=== PATIENT | female | born 1955 | race Caucasian/White ===

== ENCOUNTER → 2024-04-19 11:08 | Outpatient (CLI) | payer MEDICARE, SELFPAY ==
--- NOTE | 2024-04-19 11:12 | DI.MRI.S_ITS ---
PROCEDURE: MR KNEE RT WO CON INDICATIONS: TEAR OF MEDIAL MENISCUS RT KNEE TECHNIQUE: Noncontrast sagittal PD fast spin echo and T2 fast spin echo with fat saturation, sagittal 3-D FLASH with fat saturation; coronal T1 spin echo and PD fast spin echo with fat saturation, and axial PD fast spin echo with fat saturation through the knee. COMPARISON: None. FINDINGS: Image quality: Excellent. Menisci: In the medial meniscus, there is complex tear of the posterior horn, with a horizontal longitudinal component and an incomplete radial component. There is near maceration of the medial meniscus body, with extrusion of the residual medial meniscus body. In the lateral meniscus, there is full-thickness radial tear at the posterior horn and meniscus body junction. Marked extrusion of the lateral meniscus body. Horizontal longitudinal tear of the lateral meniscus body, extending to the anterior horn and the anterior root. Cruciate ligaments: The anterior and posterior cruciate ligaments appear intact. Medial structures: Grade 1 sprain of the MCL. Lateral structures: The lateral collateral ligament, long and short heads of the biceps femoris tendon appear intact. The popliteus tendon appears normal; the popliteofibular ligament appears intact. The posterosuperior and anteroinferior popliteomeniscal fascicles appear intact. The arcuate and fabellofibular ligaments appear intact, on either side of the lateral inferior geniculate artery. Iliotibial band appears normal. Anterior structures: The distal quadriceps tendon is unremarkable. Small distal quadriceps enthesophyte with marrow edema, representing enthesitis. Mild tendinosis of the proximal and distal patellar tendon. Mild marrow edema of the inferior pole of the patella, at the insertion of the patellar tendon, favor reactive. Mild prepatellar and infrapatellar subcutaneous edema. Hoffa's fat pad edema. The medial and lateral patellofemoral ligaments are intact. Alignment of the patellofemoral compartment is anatomic. Bones and cartilage: Cartilage of the patellofemoral compartment is well maintained. In the medial compartment, there is mild multi focal chondral irregularity of the weight-bearing portion of the medial femoral condyle. Mild subchondral marrow edema of the anterior weight-bearing portion of the medial femoral condyle, nonspecific and may represent marrow contusion. Patchy marrow edema of the medial aspect of the medial femoral condyle, nonspecific and may be degenerative versus mild marrow contusion. In the lateral compartment, there is high-grade chondral loss in the posterior weight-bearing portion of the lateral femoral condyle. Moderate marrow edema nonweightbearing portion of the lateral femoral condyle with suggestion of subchondral fracture (7:8). Mild subchondral marrow edema in the lateral tibial plateau, degenerative. Mild patchy marrow edema of the tibial eminence, reactive. Joint space: Large knee effusion. Small popliteal cyst. Popliteal vasculature is unremarkable. No intra-articular body. IMPRESSION: 1. Tear of the medial and lateral meniscus. 2. Grade 1 sprain of the MCL. 3. Mild tendinosis of the patellar tendon with mild reactive marrow edema at the inferior pole of the patella. 4. Small distal quadriceps enthesophyte with mild enthesitis. 5. Mild to moderate, lateral compartment predominant chondrosis. 6. Findings suggestive of small subchondral fracture of the nonweightbearing portion of the lateral femoral condyle, with moderate subchondral marrow edema. 7. Additional multifocal marrow edema, which may be degenerative versus marrow contusion. Dictated by: Linda Menard M.D. on 04/19/2024 at 15:40 Approved by: Linda Menard M.D. on 04/19/2024 at 15:53
== END ==
LOC: MRI 11:11
PROVIDERS: PCP Family Medicine; Referring Provider Orthopaedic Surgery; Visit Provider Orthopaedic Surgery
DX: S83.231A Complex tear of medial meniscus, current injury, right knee, initial encounter (principal); S83.281A Other tear of lateral meniscus, current injury, right knee, initial encounter; S83.411A Sprain of medial collateral ligament of right knee, initial encounter; M94.261 Chondromalacia, right knee; X58.XXXA Exposure to other specified factors, initial encounter
CPT/HCPCS: 73721